=== PATIENT | male | born 1975 | race Caucasian/White ===

== ENCOUNTER 2020-03-09 16:31 | Inpatient (IN) | payer OTHER ==
[~2020-03-09] VITALS: Ht 172.7 cm; Wt 89.8 kg
[2020-03-09] MEDS ORDERED: DOLOGESIC 500-1 EACH (16:48)
[2020-03-09] MEDS ORDERED: CARAFATE1 GM/10 ML (16:48)
[2020-03-09] MEDS ORDERED: PEPCID AC20 MG (16:49)
== END 2020-03-11 12:14 | disposition home or self-care (01) | DRG 343 ==
LOC: ER 16:31 → SURG 23:48
PROVIDERS: ADMIT Surgery; ATTEND Surgery
PROC: BW21ZZZ Computerized Tomography (CT Scan) of Abdomen and Pelvis (ICD-10-PCS; 2020-03-09)
PROC: 0DTJ4ZZ Resection of Appendix, Percutaneous Endoscopic Approach (ICD-10-PCS; principal; 2020-03-10 10:00)
DX: K35.890 Other acute appendicitis without perforation or gangrene (principal); R10.31 Right lower quadrant pain; I10 Essential (primary) hypertension; Z20.828 Contact with and (suspected) exposure to other viral communicable diseases